=== PATIENT | female | born 1950 ===

== ENCOUNTER 2019-05-14 16:26 | Emergency (ER) | payer MEDICARE, MEDICAID ==
[~2019-05-14] VITALS: Ht 167.6 cm; Wt 59.0 kg
[2019-05-14 16:30] VITALS: BP 148/88
== END 2019-05-14 16:48 ==
LOC: ER 16:26
DX: F10.129 Alcohol abuse with intoxication, unspecified (principal); E11.9 Type 2 diabetes mellitus without complications; F17.210 Nicotine dependence, cigarettes, uncomplicated; Y90.9 Presence of alcohol in blood, level not specified